=== PATIENT | female | born 2000 | race Caucasian/White ===

== ENCOUNTER 2020-10-31 18:12 | Observation (INO) | payer MEDICAID ==
[~2020-10-31] VITALS: Ht 157.5 cm; Wt 74.8 kg
[2020-10-31] MEDS ORDERED: PREN1TAB78 PO (19:10)
[2020-10-31] MEDS ORDERED: FERR325T6 PO (19:10)
[2020-10-31 19:56] LABS: CLARITY URINE CLEAR (CLEAR); COLOR URINE YELLOW (YELLOW); KETONES URINE NEGATIVE (NEGATIVE); LEUKOCYTE ESTERASE URINE NEGATIVE (NEGATIVE); NITRITE URINE NEGATIVE (NEGATIVE); OCCULT BLOOD URINE NEGATIVE (NEGATIVE); PH URINE 7.5 (4.5-8.0); PROTEIN URINE NEGATIVE (NEGATIVE); SPECIFIC GRAVITY URINE 1.012 (1.005-1.030); UROBILINOGEN URINE 0.2 E.U./dL (0.2-1.0)
== END 2020-10-31 20:15 | disposition home or self-care (01) ==
LOC: 8 EST LDRP 18:12
PROVIDERS: ADMIT Obstetrics & Gynecology; ATTEND Obstetrics & Gynecology
DX: O26.893 Other specified pregnancy related conditions, third trimester (principal); R10.30 Lower abdominal pain, unspecified; O99.891 Other specified diseases and conditions complicating pregnancy; M54.5 Low back pain; O34.63 Maternal care for abnormality of vagina, third trimester; Z3A.28 28 weeks gestation of pregnancy
CPT/HCPCS: 59025; 81003; G0378; 99281

== ENCOUNTER 2021-03-04 12:32 | Emergency (ER) | payer MEDICAID ==
[~2021-03-04] VITALS: Ht 157.5 cm; Wt 82.0 kg
[~2021-03-04 12:32] MED LIST: FERR325T6 PO; PREN1TAB78 PO
[2021-03-04 12:45] VITALS: BP 113/80
[2021-03-04] MEDS ORDERED: ONDANSETRON 4MG ODT PO STA (17:51)
[2021-03-04] MEDS ORDERED: ACETAMINOPHEN 325MG TABLET PO STA (17:51)
[2021-03-04 17:57] LABS: CLARITY URINE CLOUDY (CLEAR); COLOR URINE YELLOW (YELLOW); KETONES URINE 2+ (NEGATIVE); LEUKOCYTE ESTERASE URINE 3+ (NEGATIVE); NITRITE URINE POSITIVE (NEGATIVE); OCCULT BLOOD URINE 1+ (NEGATIVE); PH URINE 5.5 (4.5-8.0); PROTEIN URINE 1+ (NEGATIVE); SPECIFIC GRAVITY URINE 1.013 (1.005-1.030)
[2021-03-04] MEDS ORDERED: CEPH500C2 MT (18:25)
[2021-03-04] MEDS ORDERED: ACET-2708 MT (18:26)
== END 2021-03-04 18:47 | disposition home or self-care (01) ==
LOC: ER 12:32
DX: N30.00 Acute cystitis without hematuria (principal); Z79.899 Other long term (current) drug therapy
CPT/HCPCS: 81003; 81025; 87086; 87186; 99283; Q0162; Z7610

== ENCOUNTER 2023-02-24 01:54 | Emergency (ER) | payer MEDICAID, OTHER ==
[~2023-02-24] VITALS: Ht 157.5 cm; Wt 89.1 kg
[~2023-02-24 01:54] MED LIST changes: +ACET-2708 MT; +CEPH500C2 MT
[2023-02-24 01:58] VITALS: BP 133/83; PULSE 99; RESP 16; TEMP 98.1; O2SAT 100
[2023-02-24 02:41] LABS: CLARITY URINE CLOUDY (CLEAR); COLOR URINE YELLOW (YELLOW); GLUCOSE URINE NEGATIVE (NEGATIVE); KETONES URINE NEGATIVE (NEGATIVE); LEUKOCYTE ESTERASE URINE NEGATIVE (NEGATIVE); NITRITE URINE NEGATIVE (NEGATIVE); OCCULT BLOOD URINE 3+ (NEGATIVE); PROTEIN URINE TRACE (NEGATIVE); SPECIFIC GRAVITY URINE 1.026 (1.005-1.030)
[2023-02-24 03:54] LABS: BASOPHILS % 0.5 % (0.0-2.0); HEMATOCRIT. 39.6 % (36.0-48.0); HEMOGLOBIN. 13.4 g/dL (12.0-16.0); MEAN CORPUSCULAR HEMOGLOBIN 28.7 pg (28.0-32.0); MEAN CORPUSCULAR HGB CONC 33.9 g/dL (31.0-37.0); MEAN CORPUSCULAR VOLUME 84.6 fL (81.0-99.0); RED CELL DISTRIBUTION WIDTH 13.5 % (11.6-14.6)
[2023-02-24 03:56] LABS: EOSINOPHILS % 1.3 % (0.0-5.0); LYMPHOCYTES % 34.9 % (20.0-50.0); MEAN PLATELET VOLUME 7.9 fl (7.4-10.4); MONOCYTES % 12.4 % (2.0-8.0); NEUTROPHILS % 50.9 % (40.0-76.0); PLATELET 317 x1000/uL (130-400); RED BLOOD CELL COUNT 4.67 mill/uL (4.2-5.4); WHITE BLOOD COUNT 6.5 x1000/uL (4.5-11.0)
[2023-02-24 04:35] LABS: BACTERIA URINE TRACE; RBC URINE TNTC /hpf (0-2); SQUAMOUS EPITHELIAL CELL URINE 1+ /lpf (RARE/1+); WBC URINE 0-2 /hpf (0-2)
[2023-02-24 05:58] LABS: CHLORIDE 107 mEq/L (98-107); INDEX HEMOLYSI 1 (1-3); INDEX ICTERIC 1 (1-4); INDEX LIPEMIC 1 (1-3); POTASSIUM 3.3 mEq/L (3.5-5.1); SODIUM 138 mEq/L (136-145)
[2023-02-24 06:09] LABS: ALANINE AMINOTRANSFERASE 51 IU/L (13-61); ALBUMIN 3.9 g/dL (3.4-5.0); ASPARTATE AMINOTRANSFERASE 25 IU/L (15-37); BILIRUBIN TOTAL 0.4 mg/dL (0.1-1.0); CALCIUM 9.1 mg/dL (8.5-10.1); CARBON DIOXIDE 21 mEq/L (21-32); CREATININE 0.6 mg/dL (0.6-1.3); GLUCOSE 108 mg/dL (70-105); PROTEIN TOTAL 7.7 g/dL (6.0-8.3); UREA NITROGEN BLOOD 11 mg/dL (7-21)
[2023-02-24] MEDS ORDERED: TOPUD PO (06:21)
[2023-02-24 06:43] LABS: TROPONIN I HIGH SENSITIVITY < 4 ng/L (<54)
== END 2023-02-24 06:32 | disposition home or self-care (01) ==
LOC: ER 03:21
DX: R07.89 Other chest pain (principal)
CPT/HCPCS: 36415; 71045; 80053; 81003; 81025; 84484; 85025; 99284